=== PATIENT | male | born 1995 | race Caucasian/White ===

== ENCOUNTER 2020-09-05 13:07 | Emergency (ER) | payer MEDICAID, SELFPAY ==
[2020-09-05 13:08] VITALS: BP 108/61; PULSE 108; RESP 14; TEMP 36.8; O2SAT 92; BMI 25.0
--- NOTE | 2020-09-05 13:12 | ED.RN ---
FRIENDS BROUGHT PT IN BACK OF VAN. PT LAYING ON THE FLOOR, PT SLOWLY GOT INTO ED WC. PT STATES THAT HE HAS BEEN DRINKING.
--- NOTE | 2020-09-05 13:23 | EX.ED.DYSGE1 ---
HPI History of Present Illness Chief Complaint: ETOH Intox Informant: patient Narrative Narrative: Patient is a 25-year-old previously healthy male who presents to the emergency department for alcohol intoxication. He states that he overdid it today. He states he was drinking the 99 cent beers. He will not quantify how much. He denies any drug use. States he has been sober over the past 6 months. His friends brought him to the emergency department because he was not acting right in the back of the car. Patient does not have any specific complaints upon arrival. He states that just life in general has been bothering him. He denies any suicidal or homicidal ideation. Patient is tearful throughout assessment. Patient denies any head trauma. No headache or vision changes. No chest pain or shortness of breath. No abdominal pain or nausea/vomiting. [facility] Home Medications NK 09/05/20 [History Last Taken Unknown] Allergy/AdvReac Type Severity Reaction Status Date / Time No Known Allergies Allergy Verified 09/05/20 13:08 Social History Smoking Status: Current every day smoker tobacco type: cigarettes ROS ROS ED Constitutional Constitutional ED: Denies chills or fever(s) Eyes Eyes: Denies change in vision ENT ENT ED: Denies epistaxis or rhinorrhea Cardiovascular Cardiovascular: Denies chest pain or palpitations Respiratory/Chest Respiratory/Chest: Denies cough, dyspnea or dyspnea on exertion Gastrointestinal Gastrointestinal: Denies abdominal pain, diarrhea, nausea or vomiting Musculoskeletal Musculoskeletal: Denies back pain or neck pain Integumentary Denies rash Neurologic Neurologic: Denies dizziness, headache(s) or weakness EXAM Physical Exam Const Vital Signs: 09/05/20 13:08 09/05/20 15:25 09/05/20 16:14 Temperature 98.2 F Temperature Source Oral Pulse Rate 108 H 79 Respiratory Rate 14 13 Blood Pressure 108/61 119/66 112/64 Blood Pressure Mean 76 83 Pulse Ox 92 100 Oxygen Delivery Method Room Air Positive well nourished and well developed General Appearance ED: well developed and NAD HEENT Reports normocephalic, head/scalp atraumatic and moist mucous membranes Eyes PERRL and EOMs intact bilaterally Neck supple General: Negative for tenderness Chest Wall inspection of chest normal Resp normal respiratory effort and clear to auscultation bilaterally Auscultation: Negative for rales, rhonchi or wheezes Cardio regular rate, regular rhythm and no murmurs GI normal to inspection, nondistended, normoactive bowel sounds and non-tender Palpation: soft; Negative for guarding or rebound tenderness present Extremity normal to inspection General Extremety ED: Negative for edema or tenderness General Extremity: Negative for edema Neuro oriented x3, CN's II-XII intact bilaterally and no sensory deficits noted Sensorium / Orientation: alert Motor Exam: strength 5/5 throughout Psych Psych Narrative: Patient tearful but is calm and cooperative. Does appear intoxicated. Skin no rashes or lesions noted MDM MDM MDM Narrative Medical decision making narrative: Patient presents to the emergency department for alcohol intoxication. Patient has no specific complaints upon arrival. He is mildly tachycardic. We will start IV fluids and check basic labs. Will monitor until sober. Patient more active throughout ED stay. His alcohol level is elevated. His mother did come to give him a ride. He is ambulate around the emergency department on his own power. At this time believe he is stable for discharge. His mother states that he has been using a lot of drugs. Patient refusing to give urine. At this time he is discharged home in stable condition. He is to follow-up with his PCP. Return precautions are reviewed. Lab Data Labs: Laboratory Results - last 24 hr 09/05/20 09/05/20 09/05/20 13:10 13:10 13:10 WBC 6.9 RBC 4.75 Hgb 15.8 Hct 45.0 MCV 94.7 H MCH 33.3 H MCHC 35.1 RDW Std Deviation 41.6 RDW Coeff of Raul 11.9 Plt Count 232 MPV 9.9 Immature Gran % (Auto) 0.700 Neut % (Auto) 71.8 H Lymph % (Auto) 14.4 L [place] % (Auto) 11.8 H Eos % (Auto) 0.7 Baso % (Auto) 0.6 Absolute Neuts (auto) 5.0 Absolute Lymphs (auto) 1.00 Nucleated RBC % 0 Sodium 142 Potassium 3.8 Chloride 108 H Carbon Dioxide 23.0 Anion Gap 11 BUN 5 L Creatinine 1.23 Estim Creat Clear Calc 92.61 Est GFR (MDRD) Af Amer 93 Est GFR (MDRD) Non-Af 77 BUN/Creatinine Ratio 4.1 L Glucose 104 Calcium 8.6 Total Bilirubin 0.30 AST 22 ALT 26 Alkaline Phosphatase 88 Total Protein 7.9 Albumin 4.0 Globulin 3.9 Albumin/Globulin Ratio 1.0 Ethyl Alcohol 197.0 Discharge Plan Triage Chief Complaint: ETOH Intox ED Provider: Ede Patiño Dx/Rx/DC Orders Clinical Impression: Alcohol intoxication Instructions: ED Alcohol Intoxication Prescriptions: No Action NK RF: 0 Primary Care Provider: Care Physician,No Primary Referrals: Care Physician,No Primary [Primary Care Provider] - As soon as possible Disposition Disposition: Home, self care Discharge Date/Time: 09/05/20 16:15
[2020-09-05] MEDS: 0.9% Normal Saline 1,000 ML 1000 ML IV (13:32)
[2020-09-05 13:39] LABS: Basophil# 0.04 X10^3/uL; Basophil% 0.6 % (0-1); Eosinophil# 0.05 X10^3/uL; Eosinophils% 0.7 % (0-5); Hemoglobin 15.8 g/dL (13.0-16.5); Lymphocyte % 14.4 % (19-41); Mean Corp Hgb Conc 35.1 g/dL (32-36); Mean Corpuscular Hgb 33.3 pg (27.0-32.0); Mean Corpuscular Volume 94.7 fL (80-94); Mean Platelet Vol. 9.9 fl (6.2-12.0); Monocyte# 0.82 X10^3/uL; Monocyte% 11.8 % (0-10); NRBC Flagged by Analyzer 0 % (0-5); Neutrophil # 4.97 X10^3/uL (2.7-7.7); Neutrophil % 71.8 % (47-70); Platelet Count 232 K/mm3 (150-450); RBC Distribution Width CV 11.9 % (11.6-14.6); RBC Distribution Width SD 41.6 fl (35.1-43.9); Red Blood Count 4.75 M/mm3 (4.6-6.2); White Blood Count 6.9 K/mm3 (4.4-11.0)
[2020-09-05 13:46] LABS: AST(SGOT) 22 U/L (15-37); Alanine Aminotransfer ALT/SGPT 26 U/L (16-61); Alkaline Phosphatase 88 U/L (45-117); Anion Gap 11 (5-15); BUN 5 mg/dL (7-18); BUN/Creat Ratio 4.1 RATIO (10-20); Calcium,Total 8.6 mg/dL (8.5-10.1); Chloride 108 mmol/L (98-107); Creatinine, Serum 1.23 mg/dL (0.70-1.30); EST Glomerular Filtration Rate 77 mL/min (>60); Est Glom Filt Rate - Afr Amer 93 mL/min (>60); Estimated Creatinine Clearance 92.61 ml/min; Globulin 3.9 g/dL (2.2-4.2); Glucose 104 mg/dL (74-106); Potassium 3.8 mmol/L (3.5-5.1); Protein, Total 7.9 g/dL (6.4-8.2); Sodium Level 142 mmol/L (136-145)
[2020-09-05 15:25] VITALS: BP 119/66; PULSE 79; RESP 13; O2SAT 100
--- NOTE | 2020-09-05 16:03 | ED.RN ---
pt was upset that he cannot find his phone and shoes who would take my property pt was pacing and yelling in room demanding to have his shoes & phone. pt requested to see video of arrival because pt has no idea how he was brought to hospital. pt was crying and yelling at this nurse, pt then calmed down and sat on bed allowing the iv to be removed. pt then apologized for his outburst and requested to speak to police. Stephanie HRO, was informed and is at bedside at this time pt is talking to HRO.
--- NOTE | 2020-09-05 16:08 | ED.RN ---
Pt's mother will be coming in to supervisor picking crew pt, pt is okay to be discharged to home with sober person, per Dr. Patiño.
[2020-09-05 16:14] VITALS: BP 112/64
== END 2020-09-05 16:15 | disposition home or self-care (01) ==
PROVIDERS: Emergency Provider Emergency Medicine
DX: F10.129 Alcohol abuse with intoxication, unspecified (principal); F17.210 Nicotine dependence, cigarettes, uncomplicated
CPT/HCPCS: 80053; 82077; 85025; 96360; 99282; J7030; J7040; A4216

== ENCOUNTER 2022-11-26 04:22 | Emergency (ER) | payer MEDICAID, SELFPAY ==
[2022-11-26 04:23] VITALS: BP 119/73; PULSE 97; RESP 20; TEMP 36.3; O2SAT 95; BMI 16.4
--- NOTE | 2022-11-26 04:35 | EX.ED.DYSGE1 ---
HPI History of Present Illness Chief Complaint: Overdose Informant: patient and EMS Onset/Context/Timing Onset: Today Context: Sudden Onset Timing: Intermittent Quality: Unresponsive Location: Generalized Worsened by: Nothing Relieved by: Nothing Narrative Narrative: Patient presents after an overdose that occurred tonight. Patient states he does not recall what happened. Patient states he used a vape tonight. Patient states that after that he passed out. Patient states the next thing he remembers is waking up with police and paramedics around him. EMS reports giving a total of 4 mg of Narcan and the patient became awake after that. Patient denies taking any illicit drugs. Patient denies any chest pain or shortness of breath. Patient denies any nausea or vomiting. PFSH PFSH Medical History no medical history no medical history Home Medications NK 09/05/20 [History Last Taken Unknown] Allergy/AdvReac Type Severity Reaction Status Date / Time No Known Allergies Allergy Verified 11/26/22 04:28 Surgical History no surgical history no surgical history Social History Smoking Status: Current every day smoker tobacco type: cigarettes ROS ROS ED Constitutional Constitutional ED: Denies chills or fever(s) Eyes Eyes: Denies blurry vision or change in vision ENT ENT ED: Denies rhinorrhea or sore throat Cardiovascular Cardiovascular: Denies chest pain or palpitations Respiratory/Chest Respiratory/Chest: Denies cough or dyspnea Gastrointestinal Gastrointestinal: Denies nausea or vomiting Genitourinary Genitourinary ED: Denies dysuria or hematuria Musculoskeletal Musculoskeletal: Denies back pain or neck pain Integumentary Denies abscess or rash Neurologic Neurologic: Denies headache(s) or weakness Allergic/Immunologic Allergic/Immunologic ED: Denies mouth swelling or urticaria EXAM Physical Exam Const Vital Signs: 11/26/22 04:23 Temperature 97.4 F L Temperature Source Temporal Pulse Rate 97 Respiratory Rate 20 H Blood Pressure 119/73 Blood Pressure Mean 88 Pulse Ox 95 Oxygen Delivery Method Room Air Positive well nourished and well developed General Appearance ED: well developed HEENT Reports moist mucous membranes Neck supple and no JVD Resp normal respiratory effort and clear to auscultation bilaterally Cardio regular rate, regular rhythm and no murmurs GI normal to inspection, nondistended, normoactive bowel sounds and non-tender Palpation: soft Extremity normal to inspection General Extremety ED: Negative for edema or tenderness General Extremity: Negative for edema Neuro oriented x3, CN's II-XII intact bilaterally and no sensory deficits noted Sensorium / Orientation: alert Motor Exam: strength 5/5 throughout Psych mental status grossly normal MDM MDM MDM Narrative Medical decision making narrative: Patient was advised that this is most likely an opiate overdose. Patient will be observed in the emergency department for 2 hours to ensure that his mental status does not decline after the Narcan wears off. Treatment and Re-Evaluation :: Patient did not want to wait in the emergency department any longer. Patient was advised that he could relapse and stop breathing again. Patient was advised that this could lead to . Patient still does not want to wait and will sign out AGAINST MEDICAL ADVICE. Patient was instructed to follow-up with his primary care physician in 5 to 7 days. Discharge Plan Triage Chief Complaint: Overdose ED Provider: Ab Lancaster Dx/Rx/DC Orders Clinical Impression: Opiate overdose Instructions: ED Opiate Abuse Prescriptions: No Action NK Primary Care Provider: Care Physician,No Primary Referrals: Care Physician,No Primary [Primary Care Provider] - Disposition Disposition: Against Medical Advice Discharge Date/Time: 11/26/22 05:23
--- NOTE | 2022-11-26 05:19 | ED.RN ---
PT IN ROOM YELLING, CUSSING AND ARGUING WITH MOM AND PERSON ON THE PHONE. INFORMED MOM THAT SHE NEEDED TO LEAVE DUE TO DISRUPTION IN DEPARTMENT. PT REQUESTED TO LEAVE AMA. DR. BRADSHAW INFORMED. AMA PAPERS EXPLAINED AND SIGNED BY PT. AMBULATES OUT OF DEPARTMENT WITHOUT DIFFICULTY.
== END 2022-11-26 05:23 | disposition left against medical advice (07) ==
LOC: ED 04:56
PROVIDERS: Emergency Provider Emergency Medicine; Visit Provider Emergency Medicine
DX: T40.2X1A Poisoning by other opioids, accidental (unintentional), initial encounter (principal); F17.210 Nicotine dependence, cigarettes, uncomplicated
CPT/HCPCS: 99285